=== PATIENT | male | born 1990 | race Caucasian/White ===

== ENCOUNTER 2017-03-19 17:23 | Emergency (ER) | payer SELFPAY ==
[~2017-03-19] VITALS: Ht 172.7 cm; Wt 81.6 kg
[2017-03-19 18:16] LABS: Urine Bilirubin Negative (Negative); Urine Color Yellow (Yellow); Urine Glucose Normal (Normal); Urine Ketone Negative (Negative); Urine Nitrite Negative (Negative); Urine RBC 1 /hpf (0 - 3); Urine Urobilinogen Normal (Negative); Urine pH 6.5 (5.0-8.0)
[2017-03-19 18:26] LABS: Urine Blood 1+ /uL (Negative)
[2017-03-20 00:41] VITALS: BP 131/84
[2017-03-20] MEDS ORDERED: AZITHROMYCIN 250 MG TAB PO ONE (00:45)
[2017-03-20] MEDS ORDERED: traMADol HCL 50 MG TAB PO ONE (01:00)
[2017-03-20] MEDS ORDERED: ONDANSETRON ODT 4 MG TAB PO ONE (01:00)
[2017-03-20] MEDS ORDERED: ONDANSETRON HCL 4 MG/2 ML VIAL IM ONE (01:15)
[2017-03-20] MEDS ORDERED: HYDROmorphone HCL 2 MG/ML VL IM ONE (01:15)
== END 2017-03-20 01:50 | disposition home or self-care (01) ==
LOC: ER 17:26
DX: N44.2 Benign cyst of testis (principal); N45.2 Orchitis; Z88.0 Allergy status to penicillin; Z88.1 Allergy status to other antibiotic agents
CPT/HCPCS: 76870; 81001; 96372; 99285; J1170; J2405